=== PATIENT | female | born 1980 | race Two or more races ===

== ENCOUNTER 2024-04-13 08:48 | Emergency (ER) | payer MEDICAID, SELFPAY ==
--- NOTE | 2024-04-13 08:55 | PD.EDALLER ---
ED Allergic Reaction RME/HPI General Chief complaint: Allergic Reaction Stated complaint: ALLERGIC REACTION Time Seen by Provider: 04/13/24 08:50 Arrival date/time: 04/13/24 08:48 RME / HPI RME / HPI narrative: This section includes all my notes and documentations, including HPI, PE, MDM, Procedure Notes, and PLAN. Jermanie Hernandez MD HPI: 44 year old female with no stated medical history presents to the ED for complaint of allergic reaction beginning yesterday and worsening this morning. Reports the allergic reaction includes an itchy rash throughout and bilateral eyes feel swollen. Denies any history of similar symptoms. Denies using any new products or taking new medication. Denies fevers, chills, chest pain, cough, sore throat, difficulty breathing, abdominal pain, n/v/d, or urinary symptoms. No other complaints reported. ROS: Respiratory: negative except as documented in HPI. Gastrointestinal: negative except as documented in HPI. Genitourinary: negative except as documented in HPI. Musculoskeletal: negative except as documented in HPI. Skin: SEE HPI +itchy rash Neurological: negative except as documented in HPI. Physical Exam: General: Alert and oriented. No acute distress. Eyes: Conjunctivae and lids clear. ENT: No nasal congestion. Pharynx normal. Tympanic membrane normal bilaterally. Neck: Supple. Heart: RRR. Lungs: No respiratory distress. Good air movement. No rhonchi, wheezing, rales. Skin: Diffuse hives varyng in size and shape. Warm and dry. Neuro: Alert and oriented X 3. Make clinical diagnosis of allergic urticaria. Patient was treated here with Solu-Medrol 125 mg IM. Patient started feeling better. Based on my best medical judgment, made decision no further evaluation or treatment indicated at this time. Patient understands and agrees to the discharge instructions customized and printed, see below. Discharge instructions from Dr. Hernandez: 1. You were treated today for allergic reaction. 2. To help prevent the reaction going into your airways and your throat, take prednisone as prescribed. 3. And take Benadryl 50 mg every 6-8 hours today and tomorrow then as needed. 4. Increase oral fluid and maintain clear urine.? If dark or yellow, increase oral fluid.? This will help eliminate any allergens in your blood system. 5. See your private doctor on 04/15/2024 for recheck. Ask for a referral to see an golf club manager so you can be tested to know what to avoid in the future. 5. Seek immediate medical care with worsening, breathing difficulty, or with any concerns. Jermaine Hernandez MD Related Data Allergies Allergy/AdvReac Type Severity Reaction Status Date / Time No Known Allergies Allergy Unknown Uncoded 03/26/11 08:55 Review of Systems Review of Systems Systems Reviewed: All systems reviewed, normal except as documented Past Medical History Social History SMOKING STATUS: Never smoker ED Exam Narrative Physical exam: See above Course Quality Measures none Orders Category Date Time Status MethylPREDNISolone.* [SoluMEDROL Inj] Med 04/13/24 08:55 Discontinued 125 mg IM X1 ONE Vital Signs Vital signs: Vital Signs Temperature 97.9 F 04/13/24 08:57 Pulse Rate 83 04/13/24 08:57 Respiratory Rate 18 04/13/24 08:57 Blood Pressure 173/97 H 04/13/24 08:57 Pulse Oximetry (%) 98 04/13/24 08:57 Oxygen Delivery Method Room Air 04/13/24 08:57 Pulse ox is 98% on room air which is adequate. Allergic Reaction MDM Narrative MDM Narrative:: Yael Pinto am scribing for and in the presence of Dr. Hernandez. Patient data External records reviewed:: [facility] previous records (No previous ED visits for review. Patient has several outpatient physical therapy notes ) Clinical information provided by:: patient Social determinants that could affect healthcare access:: none Patient has the following chronic illnesses:: None reported How is presenting disease/condition affected by chronic disease/condition?: no chronic disease Evaluation data The following diagnostics were reviewed and interpreted by me:: other (specify) (N/A) Lab and/or radiology exams considered but not ordered:: None Interpretation Summary: N/A Medications / Prescriptions Medications or Prescriptions considered but not ordered:: None Medication administrations:: Medication Administration History Discontinued Medications Methylprednisolone Sodium Succinate (Methylprednisolone Sod Succ 62.5 Mg/Ml 2ml Vial) 125 mg IM X1 ONE Stop: 04/13/24 08:56 Last Admin: 04/13/24 09:07 Dose: 125 mg Documented By: AM See above Consultations Consultation(s) initiated? (list below): No Diagnosis Differential Diagnosis allergic reaction: allergic reaction, contact dermatitis, adverse reaction to drug, viral enanthem and urticaria Most likely diagnosis given after review of the tests above:: Allergic reaction Urticaria Admission Indicated Admission indicated?: not indicated Admission Request Was there a request for admission?: No Disposition Plan Disposition Plan: Discharge Discharge Attestation Discharge Attestation: The patient and all family members were given an opportunity to ask questions and understood the discharge instructions. Discharge instructions specifically effects, indications for sooner follow up or return to the emergency department, and the expected course of current diagnosis. Patient condition: Stable Discharge Plan Plan Patient Disposition: HOME (Self Care) Prescriptions/Referrals Prescriptions/Med Rec: New prednisone 50 mg tablet 50 mg PO BID 2 Days Qty: 4 0RF Problem List Clinical Impression: Allergic reaction, Urticaria Patient/Caregiver Discharge Instructions Education Materials: ED Hives (Adult) Additional Instructions: Discharge instructions from Dr. Hernandez: 1. You were treated today for allergic reaction. 2. To help prevent the reaction going into your airways and your throat, take prednisone as prescribed. 3. And take Benadryl 50 mg every 6-8 hours today and tomorrow then as needed. 4. Increase oral fluid and maintain clear urine.? If dark or yellow, increase oral fluid.? This will help eliminate any allergens in your blood system. 5. See your private doctor on 04/15/2024 for recheck. Ask for a referral to see an golf club manager so you can be tested to know what to avoid in the future. 5. Seek immediate medical care with worsening, breathing difficulty, or with any concerns. Print Language: Japanese Stand Alone Forms: [facility] Award Info., Patient Portal Info Letter
[2024-04-13 08:57] VITALS: BP 173/97; PULSE 83; RESP 18; TEMP 36.6; O2SAT 98; BMI 29.6
[2024-04-13] MEDS: MethylPREDNISolone SOD SUCC 62.5 MG/ML 2ML VIAL 125 MG IM (09:07)
== END 2024-04-13 09:20 | disposition home or self-care (01) ==
LOC: SERX 09:18
PROVIDERS: Emergency Provider Emergency Medicine; PCP Family Medicine
DX: L50.0 Allergic urticaria (principal)
CPT/HCPCS: 96372; 99283; J2919

== ENCOUNTER → 2024-10-26 | Outpatient (CLI) | payer MEDICAID, SELFPAY ==
--- NOTE | 2024-10-26 10:30 | XR_ITS ---
Examination: Screening digital mammography, bilateral Computer aided detection 3-D breast Tomosynthesis, bilateral Date and time of exam: October 26, 2024 1056 hours No priors Indication: Screening Technique: Nonmagnified MLO, CC views of the breasts to been obtained, reconstructed from 3-D Tomosynthesis images. R2 computer aided detection program utilized for evaluation of suspicious masses and/or abnormal calcifications. 3-D Tomosynthesis images obtained. Findings: The breasts are heterogeneously dense, which may obscure small masses Benign calcifications 16 mm focal asymmetry outer left breast anterior depth 5 cm from the nipple IMPRESSION: BI-RADS Category 0: Incomplete: Need additional imaging evaluation 16 mm focal asymmetry outer left breast anterior depth 5 cm from the nipple, recommend follow-up spot tomographic views upper outer quadrant left breast, bilateral breast sonography to complete workup.
== END | disposition home or self-care (01) ==
PROVIDERS: Referring Provider Nurse Practitioner Women's Health; Visit Provider Nurse Practitioner Women's Health
DX: Z12.31 Encounter for screening mammogram for malignant neoplasm of breast (principal); N64.89 Other specified disorders of breast
CPT/HCPCS: 77063; 77067